=== PATIENT | male | born 1965 | race Caucasian/White ===

== ENCOUNTER → 2021-08-20 08:36 | Outpatient (CLI) | payer BC, SELFPAY ==
[2021-08-20 13:50] LABS: COVID19 -Nasal RAPID Negative (Negative)
== END ==
PROVIDERS: Visit Provider Nurse Practitioner Family
DX: Z20.822 Contact with and (suspected) exposure to COVID-19 (principal)
CPT/HCPCS: 87635

== ENCOUNTER 2021-08-22 13:39 | Day surgery (SDC) | payer BC, SELFPAY ==
--- NOTE | 2021-08-22 | PATH_ITS ---
[facility] Accession Number: [id number] . 01 Material submitted: . sigmoid colon - SIGMOID POLYP 8MM . 02 Diagnosis: Sigmoid Colon, Polyp 8 mm, Biopsy: Tubular adenoma. MRV 08/25/2021 1332 Local . 02 Electronically signed: . Rosibel Arellano MD, Pathologist NPI- [id number] . 01 Gross description: . SIGMOID POLYP 8MM: Received in formalin are 4 fragment(s) of meyer, soft tissue measuring 0.4 x 0.4 x 0.2 cm to 0.3 x 0.2 x 0.1 cm submitted entirely in 1 cassette(s) /NAVEED 08/23/2021 0445 Local . 02 Pathologist provided ICD-10: D12.5 . 02 CPT . 547482 Performed at: 01 [facility] [address] [id number] MD Sai Dorman MD Phone: [phone] Performed at: 02 [facility] [address] [address] [place], [place] [id number] MD Rosibel Arellano MD Phone: [phone]
--- NOTE | 2021-08-22 12:13 | PM.HP.1 ---
History of Present Illness History of Present Illness Date Patient Seen: 08/22/21 Chief complaint: [facility] Narrative: 56 Years Old Male seen today for consideration of a screening colonoscopy. He has never had a colonoscopy. There have been no lower GI symptoms suggesting disease such as change in bowel habits, bleeding, abdominal pain or anemia. There's been no family history of colon cancer or colon polyps. Overall health issues have been stable, including no major cardiac events for at least 6 weeks. 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 Exam Narrative Exam Narrative: General: well developed, well nourished, in no acute distress, Head: normocephalic and atraumatic, Lungs: normal respiratory effort, clear bilaterally to auscultation, no wheezes rales or rhonchi. Heart: normal rate and regular rhythm, no murmurs, rubs, gallops, or clicks, Abdomen: abdomen soft and non-tender without masses, organomegaly, or abdominal wall hernias, bowel sounds positive. Skin: intact without suspicious lesions or rashes, Psych: alert and cooperative; normal mood and affect; normal attention span and concentration; cognition, remote and recent memory appear to be intact, Assessment & Plan Assessment & Plan narrative: 1. Screening for colon cancer Plan for colonoscopy. The nature and character of the procedure as well as anticipated results were discussed. The possibility of not completing the procedure was also discussed. Possible complications including aspiration pneumonia, bleeding, perforation and reaction to medications either for sedation or preparation and missed lesions were discussed. Questions were answered and proceeding to the colonoscopy was elected. Informed consent signed. I sincerely appreciate the referral allowing me to participate in this patient's care. Please contact me with any questions or concerns.
--- NOTE | 2021-08-22 12:15 | PM.OP.COLON ---
Operative Date/Time/Diagnoses Date of procedure: 08/22/21 Procedure Notes SCOAP/Timeout: 2:31 p.m. Procedure in detail: ENDOSCOPIST: Regla Menendez MD Sedation RN: Aj Alfaro RN Sedation start time: 2:32 p.m. Sedation end time: 2:51 p.m. PROCEDURE: Colonoscopy with biopsy INDICATIONS: 1. Screening for colon cancer MEDICATION: Levsin 0.125 mg sublingual, incremental doses of Versed and fentanyl until appropriate level sedation achieved. ASA CLASS: 2 CECAL WITHDRAWAL TIME: 9 minutes COMPLICATIONS: None. EXTENT OF PROCEDURE: Cecum. QUALITY OF PREP: Good with portions of liquid stool. PROCEDURE: Prior to insertion of the colonoscope, a digital rectal examination was accomplished with circumferential palpation of the distal rectal mucosa without significant findings being noted. The high-definition colonoscope was passed into the rectum in the usual fashion and advanced over to the cecum without difficulty. The ileocecal valve, appendiceal stoma, and medial wall all could be inspected and no abnormalities were seen. ASCENDING COLON: As the colonoscope was withdrawn, care was taken to expose and inspect the haustral folds and no abnormalities were seen. HEPATIC FLEXURE: Normal, no polyps, diverticula or other abnormalities. TRANSVERSE COLON: Normal, no polyps, diverticula or other abnormalities. DESCENDING COLON: Normal, no polyps, diverticula or other abnormalities. SIGMOID COLON: An 8 mm polyp was seen and removed with cold biopsy forceps, excellent hemostasis. Otherwise, normal, no diverticula or other abnormalities. RECTUM: Normal. J maneuver was produced. There was no significant perianal disease. The J maneuver was broken. The remainder of the rectum was inspected and there was no external hemorrhoid disease. The scope was withdrawn. IMPRESSION: 1. Sigmoid polyp x1, 8 mm, removed with cold biopsy forceps. PLAN: 1. Follow-up in clinic status post pathology results. The possibility of a missed lesion including a malignancy has been discussed with the patient previously. Potential alarm symptoms have been discussed and should be reported immediately.
[2021-08-22] MEDS: HYOSCYAMINE 0.125 MG TABLET PO (13:56)
[2021-08-22] MEDS: LACTATED RINGERS 1,000 ML 200 ML IV (13:57)
[2021-08-22 14:04] VITALS: BP 107/70; PULSE 74; RESP 16; TEMP 36.7; O2SAT 99; BMI 25.7
[2021-08-22] MEDS: fentaNYL 250 MCG/5 ML INJ IV (14:32)
[2021-08-22] MEDS: MIDAZOLAM 5 MG/5 ML VIAL IV (14:38)
[2021-08-22 14:55] VITALS: BP 115/74; PULSE 77; RESP 16; TEMP 36.9; O2SAT 95
[2021-08-22 15:00] VITALS: BP 110/69; PULSE 69; RESP 15; O2SAT 94
[2021-08-22 15:05] VITALS: BP 102/66; PULSE 58; RESP 10; O2SAT 94
[2021-08-22 15:10] VITALS: BP 104/65; PULSE 60; RESP 15; O2SAT 96
[2021-08-22 15:15] VITALS: BP 106/67; PULSE 58; RESP 16; O2SAT 96
== END 2021-08-22 15:28 | disposition home or self-care (01) ==
PROVIDERS: PCP Family Medicine; Referring Provider Student in an Organized Health Care Education/Training Program; Visit Provider Student in an Organized Health Care Education/Training Program
PROC: 0DJD8ZZ Inspection of Lower Intestinal Tract, Via Natural or Artificial Opening Endoscopic (ICD-10-PCS; CPT 45378; principal; 2021-08-22 14:30)
DX: Z12.11 Encounter for screening for malignant neoplasm of colon (principal); E78.5 Hyperlipidemia, unspecified; D69.49 Other primary thrombocytopenia; D12.5 Benign neoplasm of sigmoid colon
CPT/HCPCS: 45380; J2250; J3010

== ENCOUNTER → 2024-03-20 17:14 | Outpatient (CLI) | payer BC, SELFPAY ==
--- NOTE | 2024-03-20 17:16 | DI.MRI.S_ITS ---
PROCEDURE: MR SHOULDER RT WO CON INDICATIONS: Pain in right arm TECHNIQUE: Noncontrast oblique coronal T2 fast spin echo with fat saturation, oblique sagittal T1 spin echo and T2 fast spin echo with fat saturation, axial T1 spin echo and T2 fast spin echo with fat saturation through the shoulder. COMPARISON: None. FINDINGS: Image quality: Excellent. Rotator cuff: Moderate grade articular surface partial-thickness tear involving distal supraspinatus at its insertion on the humeral head is seen. Suggestion of small calcifications involving distal supraspinatus at its insertion on the humeral head are seen concerning for hydroxyapatite deposition disease. Low-grade articular surface partial-thickness tear involving distal infraspinatus at its insertion on the humeral head. The subscapularis tendon is thickened. No full-thickness rotator cuff tendon rupture. Sagittal images demonstrate no significant rotator cuff muscle atrophy. Bones and bursae: No bone marrow contusions or fractures. Moderate acromioclavicular joint osteoarthritic changes are seen with joint space narrowing and downward osteophyte formation depressing the musculotendinous junction of supraspinatus. Small amount of joint effusion and subacromial subdeltoid bursal fluid is seen, no gross loose bodies. Capsule and soft tissues: There is no gross focal labral tear. Small sublabral foramen is present which is a normal variant. The long head of the biceps tendon demonstrates normal location and morphology. The rotator interval appears normal, without fibrosis. The coracohumeral ligament is normal in thickness. IMPRESSION: 1. Moderate grade articular surface partial-thickness tear involving distal supraspinatus extending to musculotendinous junction. Suggestion of mild calcific tendinosis involving distal supraspinatus at its insertion on the humeral head. Low-grade articular surface partial-thickness tear involving distal infraspinatus. Distal subscapularis tendinosis. No full-thickness rotator cuff tendon rupture. 2. Moderate acromioclavicular joint osteoarthritis. No fracture or dislocation. Small joint effusion and subacromial subdeltoid bursal fluid, no gross loose bodies. 3. No definite focal labral tear. Dictated by: Cm Schafer M.D. on 03/21/2024 at 8:53 Approved by: Cm Schafer M.D. on 03/21/2024 at 8:56
== END ==
PROVIDERS: PCP Family Medicine; Referring Provider Family Medicine; Visit Provider Family Medicine
DX: M75.111 Incomplete rotator cuff tear or rupture of right shoulder, not specified as traumatic (principal); M19.011 Primary osteoarthritis, right shoulder; M25.411 Effusion, right shoulder; M79.601 Pain in right arm; M62.81 Muscle weakness (generalized)
CPT/HCPCS: 73221